=== PATIENT | male | born 1995 | race Two or more races ===

== ENCOUNTER 2020-11-15 23:08 | Emergency (ER) | payer SELFPAY ==
--- NOTE | 2020-11-15 23:21 | NUR ---
PT REFUSED TO BE TRAIGED. PT LEFT WITHOUT BEING SEEN.
== END 2020-11-15 23:22 | disposition left against medical advice (07) ==
LOC: ER 23:10
DX: Z53.21 Procedure and treatment not carried out due to patient leaving prior to being seen by health care provider (principal)

== ENCOUNTER 2020-12-09 10:55 | Emergency (ER) | payer SELFPAY ==
[~2020-12-09] VITALS: Ht 180.3 cm; Wt 117.9 kg
[2020-12-09 11:17] VITALS: BP 155/103
--- NOTE | 2020-12-09 11:20 | NUR ---
THE PATIENT BIBS FOR C/O FOREIGN BODY, CAPSULES HE BOUGHT ONLINE, BOTH EAR CANALS HE INSERTED 2 YEAR AGO. DENIES PAIN. DENIES CHANGE IN HEARING. NO DISCHARGE FROM THE EARS NOTED. WILL CONTINUE TO MONITOR THE PATIENT.
--- NOTE | 2020-12-09 11:58 | NUR ---
The patient alert and oriented x4. Denies pain. Denies SI/HI. Patient discharged to home in stable condition. Written and verbal after care instructions given. Patient verbalizes understanding of instruction.
== END 2020-12-09 11:59 | disposition home or self-care (01) ==
LOC: ER 11:28
DX: F22 Delusional disorders (principal); F20.9 Schizophrenia, unspecified; Z60.2 Problems related to living alone